=== PATIENT | female | born 1955 | race Caucasian/White ===

== ENCOUNTER 2017-05-11 08:57 | Day surgery (SDC) | payer BC ==
[2017-05-10 15:24] VITALS: BMI 20.8
[2017-05-11] MEDS ORDERED: PROPOFOL 20 ML ONE (09:02)
[2017-05-11 10:07] VITALS: TEMP 98.2
[2017-05-11 10:53] VITALS: BP 141/71; PULSE 77
--- NOTE | 2017-05-12 12:45 | PATH ---
Surgical Pathology Report Patient Name: ZOE RANGEL [facility]. Rec. #: [id number] /Age/Gender: 1955 (Age: 61) / F Account: [id number] Location: [facility]-ENDOSCOPY Taken: 05/11/2017 Received: 05/11/2017 Reported: 05/12/2017 Physicians: Chapincito Barcenas M.D. Specimen(s) Received BX ILEOCECAL VALVE Clinical History Preoperative diagnosis: Weight loss, CEA level elevation Postoperative diagnosis: Prominent ileocecal valve Final Diagnosis COLON, ILEOCECAL VALVE, BIOPSY: COLONIC AND SMALL INTESTINAL MUCOSA WITH NO PATHOLOGIC CHANGES. Electronically Signed Ziggy Avila M.D. Gross Description Received in formalin, labeled "biopsy ileocecal valve" are 2 serra, irregular portions of soft tissue averaging 0.2 cm. in greatest dimension. The specimens are submitted in toto in one cassette. /05/11/201705/11/2017
== END 2017-05-11 10:54 | disposition home or self-care (01) ==
LOC: EDBD → JASU-ENDO 08:57
PROVIDERS: ATTEND Internal Medicine Gastroenterology
PROC: 0DBC8ZX Excision of Ileocecal Valve, Via Natural or Artificial Opening Endoscopic, Diagnostic (ICD-10-PCS; principal; 2017-05-11 09:00)
DX: R63.4 Abnormal weight loss (principal)
CPT/HCPCS: 82962; 88305-TC

== ENCOUNTER 2024-05-17 14:48 | Inpatient (IN) | payer BC ==
[2024-05-17] MEDS ORDERED: FUROSEMIDE 40 MG/4 ML INJECTABLE VIAL ONE ×2 (15:59→22:26)
[2024-05-17] MEDS: FUROSEMIDE 40 MG/4 ML INJECTABLE VIAL IVPUSH ONE ×2 (16:11→22:46)
[2024-05-17 16:15] LABS: BASO % 0.6 % (0-2.0); HEMATOCRIT 34.6 % (32.4-45.2); HEMOGLOBIN 11.5 GM/dL (10.7-15.3); LYMPH % 16.7 % (8-40); MCH 28.9 pg (25.7-33.7); MCHC 33.2 g/dl (32.0-36.0); MEAN CELL VOLUME 86.9 fl (80-96); MEAN PLT VOLUME 9.2 fl (7.5-11.1); MONO % 7.3 % (3.8-10.2); NEUT % 73.4 % (42.8-82.8); PLATELET COUNT 316 10^3/uL (134-434); RBC 3.98 M/mm3 (3.60-5.2); RDW 15.6 % (11.6-15.6)
[2024-05-17 16:20] LABS: INR 0.95 (0.83-1.09); PROTHROMBIN TIME (PATIENT) 10.4 SEC (9.7-13.0)
[2024-05-17 16:23] LABS: ACTIVATED PTT 27.2 SECONDS (25.2-36.5)
[2024-05-17 16:29] LABS: CHLORIDE 90 mmol/L (98-107); SODIUM 131 mmol/L (136-145)
[2024-05-17 16:31] LABS: ANION GAP 7 mmol/L (4-13); BLOOD UREA NITROGEN 24.7 mg/dL (7-18); CO2 34 mmol/L (21-32)
[2024-05-17 16:32] LABS: ALBUMIN 2.2 g/dl (3.4-5.0); CALCIUM 8.8 mg/dL (8.5-10.1)
[2024-05-17 16:35] LABS: CREATININE 1.5 mg/dL (0.55-1.3); SGOT/AST 12 U/L (15-37); SGPT/ALT 15 U/L (13-61)
[2024-05-17 16:37] LABS: BILIRUBIN,TOTAL 1.1 mg/dL (0.2-1); TOT PROT 5.6 g/dl (6.4-8.2)
[2024-05-17 16:38] LABS: ALK PHOS 95 U/L (45-117)
[2024-05-17 16:50] LABS: GLUCOSE,RANDOM 686 mg/dL (74-106)
[2024-05-17 17:28] LABS: EPI CELLS 2 /uL (0-25.1); HYALINE CASTS 0 /uL (0-3.1); PH,URINE 6.5 (5.0-8.0); URINE APPEARANCE TURBID; URINE BACTERIA >9,000 /uL (0-1359); URINE BILIRUBIN NEGATIVE (NEGATIVE); URINE COLOR YELLOW; URINE GLUCOSE (UA) 3+ (NEGATIVE); URINE KETONE NEGATIVE (NEGATIVE); URINE LEUK ESTERASE 2+ (NEGATIVE); URINE NITRITE NEGATIVE (NEGATIVE); URINE PROTEIN 3+ (NEGATIVE); URINE RBC 131 /uL (0-23.9); URINE UROBILINOGEN 0.2 mg/dL (0.2-1.0); URINE WBC 6858 /uL (0-25.8)
[2024-05-17] MEDS: LOSARTAN 50MG/HCTZ 12.5MG 1 TAB PO ONE (17:30)
[2024-05-17] MEDS ORDERED: POTASSIUM CHLORIDE TABS 10 MEQ TABLET.ER (FP) ONE (18:49)
[2024-05-17] MEDS ORDERED: POTASSIUM CHLORIDE ORAL LIQUID 20 MEQ/15 ML ONE (18:49)
[2024-05-17] MEDS ORDERED: CEFTRIAXONE 1 G/50 ML PREMIX 50 ML IVPB ONE (18:50)
[2024-05-17] MEDS ORDERED: KCL 10 MEQ IVPB 10 MEQ/100 ML INFUS.BAG IVPB ONE (18:50)
[2024-05-17] MEDS: POTASSIUM CHLORIDE ORAL LIQUID 20 MEQ/15 ML PO ONE (19:07)
[2024-05-17] MEDS: POTASSIUM CHLORIDE TABS 10 MEQ TABLET.ER (FP) PO ONE (19:07)
[2024-05-17] MEDS: KCL 10 MEQ IVPB 10 MEQ/100 ML INFUS.BAG IVPB SCH (19:44)
[2024-05-17] MEDS ORDERED: ACETAMINOPHEN 500 MG TABLET (FP) PO PRN (20:13)
[2024-05-17] MEDS ORDERED: DOCUSATE SODIUM 100 MG CAPSULE (FP) PO PRN (20:13)
[2024-05-17 20:48] LABS: N-TERMINAL BNP 53425.83 pg/ml (5-125)
[2024-05-17 20:58] LABS: MAGNESIUM 2.3 mg/dL (1.8-2.4)
[2024-05-17] MEDS ORDERED: NITROGLYCERIN 2% OINTMENT - 1GM PACKET TD ONE (21:02)
[2024-05-17] MEDS ORDERED: INSULIN ASPART SLIDING SCALE (NOVOLOG) 1 VIAL SQ ONE (21:14)
[2024-05-17] MEDS: INSULIN ASPART SLIDING SCALE (NOVOLOG) 1 VIAL SQ SCH (21:23)
[2024-05-17] MEDS: NITROGLYCERIN 2% OINTMENT - 1GM PACKET TD ONE (21:24)
[2024-05-18] MEDS ORDERED: INSULIN ASPART SLIDING SCALE (NOVOLOG) 1 VIAL SQ ONE (00:46)
[2024-05-18 02:30] VITALS: BMI 22.8
[2024-05-18 07:45] LABS: BASO % 0.7 % (0-2.0); EOS % 5.4 % (0-4.5); HEMATOCRIT 32.9 % (32.4-45.2); HEMOGLOBIN 11.2 GM/dL (10.7-15.3); LYMPH % 23.4 % (8-40); MCH 29.6 pg (25.7-33.7); MCHC 34.1 g/dl (32.0-36.0); MEAN CELL VOLUME 86.8 fl (80-96); MEAN PLT VOLUME 9.2 fl (7.5-11.1); MONO % 8.2 % (3.8-10.2); NEUT % 62.3 % (42.8-82.8); PLATELET COUNT 317 10^3/uL (134-434); RBC 3.79 M/mm3 (3.60-5.2); RDW 15.2 % (11.6-15.6); WHITE BLOOD COUNT 7.9 K/mm3 (4.0-10.0)
[2024-05-18] MEDS: FUROSEMIDE 40 MG/4 ML INJECTABLE VIAL IVPUSH ONE (07:55)
[2024-05-18 08:05] LABS: CHLORIDE 95 mmol/L (98-107); SODIUM 137 mmol/L (136-145)
[2024-05-18 08:06] LABS: POTASSIUM 2.9 mmol/L (3.5-5.1)
[2024-05-18 08:07] LABS: CALCIUM 8.7 mg/dL (8.5-10.1)
[2024-05-18 08:08] LABS: ANION GAP 7 mmol/L (4-13); BLOOD UREA NITROGEN 24.2 mg/dL (7-18); CO2 35 mmol/L (21-32); GLUCOSE,RANDOM 112 mg/dL (74-106)
[2024-05-18 08:11] LABS: CREATININE 1.3 mg/dL (0.55-1.3)
[2024-05-18] MEDS: KCL 10 MEQ IVPB 10 MEQ/100 ML INFUS.BAG IVPB SCH (09:17)
[2024-05-18] MEDS: POTASSIUM CHLORIDE ORAL LIQUID 20 MEQ/15 ML PO SCH (09:17)
[2024-05-18] MEDS: CEFTRIAXONE 1 G/50 ML PREMIX 50 ML IVPB SCH (09:17)
[2024-05-18] MEDS: ASPIRIN COATED 81 MG TABLET.EC PO SCH (09:17)
[2024-05-18] MEDS: FUROSEMIDE 40 MG/4 ML INJECTABLE VIAL IVPUSH SCH (13:57)
[2024-05-18] MEDS: HEPARIN NA (PORCINE) 5,000 UNITS/ML 1ML VIAL SQ SCH (13:57)
[2024-05-18] MEDS: ROSUVASTATIN CA 5 MG TABLET PO SCH (21:12)
[2024-05-18] MEDS: INSULIN (LEVEMIR) 100 UNITS/ML UNITS SQ SCH (22:51)
[2024-05-19 08:14] LABS: CHLORIDE 99 mmol/L (98-107); POTASSIUM 3.2 mmol/L (3.5-5.1); SODIUM 139 mmol/L (136-145)
[2024-05-19 08:19] LABS: SGOT/AST 17 U/L (15-37)
[2024-05-19 08:20] LABS: ANION GAP 5 mmol/L (4-13); BLOOD UREA NITROGEN 24.4 mg/dL (7-18); CO2 35 mmol/L (21-32); GLUCOSE,RANDOM 76 mg/dL (74-106); MAGNESIUM 1.9 mg/dL (1.8-2.4)
[2024-05-19 08:23] LABS: CREATININE 1.4 mg/dL (0.55-1.3); PHOSPHOROUS 3.9 mg/dL (2.5-4.9)
[2024-05-19 08:24] LABS: BILIRUBIN,TOTAL 0.5 mg/dL (0.2-1)
[2024-05-19 08:25] LABS: TOT PROT 5.1 g/dl (6.4-8.2)
[2024-05-19 08:26] LABS: ALK PHOS 77 U/L (45-117)
[2024-05-19 08:27] LABS: SGPT/ALT 13 U/L (13-61)
[2024-05-19] MEDS: LOSARTAN POTASSIUM 50 MG TABLET PO SCH (09:15)
[2024-05-19] MEDS: INSULIN (LEVEMIR) 100 UNITS/ML UNITS SQ SCH (09:16)
[2024-05-20 07:36] LABS: CALCIUM 8.5 mg/dL (8.5-10.1)
[2024-05-20 07:37] LABS: ALBUMIN 1.9 g/dl (3.4-5.0); BLOOD UREA NITROGEN 25.7 mg/dL (7-18); MAGNESIUM 1.9 mg/dL (1.8-2.4)
[2024-05-20 07:40] LABS: CREATININE 1.3 mg/dL (0.55-1.3)
[2024-05-20 07:42] LABS: BILIRUBIN,TOTAL 0.5 mg/dL (0.2-1)
[2024-05-20] MEDS: metoPROLOL SUCCINATE 25 MG TAB.SR.24H (FP) PO SCH (12:22)
[2024-05-20] MEDS: SPIRONOLACTONE 25 MG TABLET PO SCH (12:22)
[2024-05-21 07:42] LABS: POTASSIUM 3.9 mmol/L (3.5-5.1)
[2024-05-21 07:53] LABS: ALBUMIN 1.9 g/dl (3.4-5.0); BLOOD UREA NITROGEN 30.2 mg/dL (7-18); CALCIUM 8.2 mg/dL (8.5-10.1)
[2024-05-21 07:56] LABS: CREATININE 1.2 mg/dL (0.55-1.3)
[2024-05-21 07:58] LABS: BILIRUBIN,TOTAL 0.8 mg/dL (0.2-1); TOT PROT 4.9 g/dl (6.4-8.2)
[2024-05-22 08:05] LABS: BASO % 0.9 % (0-2.0); EOS % 3.1 % (0-4.5); HEMATOCRIT 30.5 % (32.4-45.2); LYMPH % 16.1 % (8-40); MCH 29.3 pg (25.7-33.7); MCHC 32.9 g/dl (32.0-36.0); MEAN CELL VOLUME 89.2 fl (80-96); MEAN PLT VOLUME 9.3 fl (7.5-11.1); MONO % 6.7 % (3.8-10.2); NEUT % 73.2 % (42.8-82.8); PLATELET COUNT 273 10^3/uL (134-434); RBC 3.42 M/mm3 (3.60-5.2); RDW 16.2 % (11.6-15.6); WHITE BLOOD COUNT 9.1 K/mm3 (4.0-10.0)
[2024-05-22 08:12] LABS: POTASSIUM 4.1 mmol/L (3.5-5.1)
[2024-05-22 08:15] LABS: BLOOD UREA NITROGEN 35.2 mg/dL (7-18)
[2024-05-22 08:19] LABS: BILIRUBIN,TOTAL 0.6 mg/dL (0.2-1)
[2024-05-22 08:22] LABS: CREATININE 1.5 mg/dL (0.55-1.3); TOT PROT 5.2 g/dl (6.4-8.2)
[2024-05-22] MEDS: FUROSEMIDE 40 MG TABLET (FP) PO SCH (09:43)
[2024-05-22] MEDS: SPIRONOLACTONE 25 MG TABLET PO SCH (09:43)
[2024-05-22] MEDS: amLODIPine BESYLATE 5 MG TABLET (FP) PO SCH (09:43)
[2024-05-22] MEDS: COLCHICINE 0.6 MG TAB PO SCH (10:23)
[2024-05-22 19:41] LABS: SYPHILIS W/ RPR CONF NON-REACTIVE (NONREACTIVE)
[2024-05-22 20:09] LABS: HIV INTERPRETATION NEGATIVE (NEGATIVE)
[2024-05-22] MEDS: INSULIN (LEVEMIR) 100 UNITS/ML UNITS SQ SCH (22:38)
[2024-05-23 07:33] LABS: BASO % 0.7 % (0-2.0); EOS % 0.8 % (0-4.5); HEMATOCRIT 29.9 % (32.4-45.2); HEMOGLOBIN 9.6 GM/dL (10.7-15.3); LYMPH % 11.2 % (8-40); MCH 28.8 pg (25.7-33.7); MCHC 32.2 g/dl (32.0-36.0); MEAN CELL VOLUME 89.4 fl (80-96); MEAN PLT VOLUME 9.4 fl (7.5-11.1); MONO % 3.7 % (3.8-10.2); NEUT % 83.6 % (42.8-82.8); PLATELET COUNT 277 10^3/uL (134-434); RBC 3.34 M/mm3 (3.60-5.2)
[2024-05-23 07:52] LABS: POTASSIUM 4.1 mmol/L (3.5-5.1)
[2024-05-23 08:04] LABS: BLOOD UREA NITROGEN 39.7 mg/dL (7-18)
[2024-05-23 08:05] LABS: ALBUMIN 2.2 g/dl (3.4-5.0)
[2024-05-23 08:08] LABS: CREATININE 1.6 mg/dL (0.55-1.3)
[2024-05-23 08:09] LABS: BILIRUBIN,TOTAL 0.7 mg/dL (0.2-1); TOT PROT 5.6 g/dl (6.4-8.2)
[2024-05-23 09:03] LABS: N-TERMINAL BNP 28015.9 pg/ml (5-125)
[2024-05-23] MEDS: FUROSEMIDE 100 MG/10 ML INJECTABLE VIAL IVPB SCH (12:35)
[2024-05-23 17:08] LABS: IG A QN SERUM. 205 mg/dL (87-352)
[2024-05-23] MEDS ORDERED: INSULIN GLARGINE (LANTUS) 100 UNITS/ML UNITS SQ SCH (22:06)
[2024-05-23] MEDS: INSULIN (LEVEMIR) 100 UNITS/ML UNITS SQ SCH (22:38)
[2024-05-23] MEDS: INSULIN GLARGINE (LANTUS) 100 UNITS/ML UNITS SQ SCH (22:42)
[2024-05-24 07:26] LABS: EOS % 2.3 % (0-4.5); HEMATOCRIT 28.4 % (32.4-45.2); HEMOGLOBIN 9.3 GM/dL (10.7-15.3); LYMPH % 15.6 % (8-40); MCH 29.4 pg (25.7-33.7); MCHC 32.9 g/dl (32.0-36.0); MEAN CELL VOLUME 89.3 fl (80-96); MEAN PLT VOLUME 9.1 fl (7.5-11.1); MONO % 6.4 % (3.8-10.2); NEUT % 74.7 % (42.8-82.8); PLATELET COUNT 263 10^3/uL (134-434); RBC 3.18 M/mm3 (3.60-5.2); RDW 15.4 % (11.6-15.6); WHITE BLOOD COUNT 8.3 K/mm3 (4.0-10.0)
[2024-05-24 07:49] LABS: ALBUMIN 2.2 g/dl (3.4-5.0); BLOOD UREA NITROGEN 40.1 mg/dL (7-18); CALCIUM 7.8 mg/dL (8.5-10.1); MAGNESIUM 2.4 mg/dL (1.8-2.4)
[2024-05-24 07:52] LABS: CREATININE 1.6 mg/dL (0.55-1.3)
[2024-05-24 07:54] LABS: BILIRUBIN,TOTAL 0.7 mg/dL (0.2-1); TOT PROT 5.6 g/dl (6.4-8.2)
[2024-05-24] MEDS: CEFUROXIME AXETIL 250 MG TABLET PO SCH (09:34)
[2024-05-24 12:39] LABS: EPI CELLS 5 /uL (0-25.1); HYALINE CASTS 2 /uL (0-3.1); URINE APPEARANCE CLEAR; URINE BACTERIA 129 /uL (0-1359); URINE BILIRUBIN NEGATIVE (NEGATIVE); URINE COLOR YELLOW; URINE GLUCOSE (UA) 2+ (NEGATIVE); URINE KETONE NEGATIVE (NEGATIVE); URINE LEUK ESTERASE NEGATIVE (NEGATIVE); URINE NITRITE NEGATIVE (NEGATIVE); URINE PROTEIN 4+ (NEGATIVE); URINE UROBILINOGEN 0.2 mg/dL (0.2-1.0)
[2024-05-24 13:25] LABS: URINE RBC 140 /uL (0-23.9); URINE WBC 212 /uL (0-25.8)
[2024-05-24] MEDS: INSULIN ASPART SLIDING SCALE (NOVOLOG) 1 VIAL SQ SCH (17:51)
[2024-05-24] MEDS: guaiFENesin 200 MG/10 ML 10 ML UNIT-DOSE CUPS PO PRN (21:36)
[2024-05-25 07:14] LABS: BASO % 1.1 % (0-2.0); EOS % 3.8 % (0-4.5); HEMATOCRIT 27.2 % (32.4-45.2); LYMPH % 29.1 % (8-40); MCH 29.5 pg (25.7-33.7); MCHC 33.2 g/dl (32.0-36.0); MEAN CELL VOLUME 88.8 fl (80-96); MEAN PLT VOLUME 9.6 fl (7.5-11.1); MONO % 7.8 % (3.8-10.2); NEUT % 58.2 % (42.8-82.8); PLATELET COUNT 264 10^3/uL (134-434); RBC 3.07 M/mm3 (3.60-5.2); RDW 15.7 % (11.6-15.6); WHITE BLOOD COUNT 7.6 K/mm3 (4.0-10.0)
[2024-05-25 07:20] LABS: POTASSIUM 4.1 mmol/L (3.5-5.1)
[2024-05-25 07:23] LABS: BLOOD UREA NITROGEN 45.2 mg/dL (7-18); CALCIUM 7.8 mg/dL (8.5-10.1)
[2024-05-25 07:26] LABS: CREATININE 1.6 mg/dL (0.55-1.3)
[2024-05-25 07:27] LABS: BILIRUBIN,TOTAL 0.7 mg/dL (0.2-1); TOT PROT 5.3 g/dl (6.4-8.2)
[2024-05-25 13:08] LABS: RENIN ACTIVITY(PRA) 0.217 ng/mL/hr (0.167-5.380)
[2024-05-25 14:56] VITALS: TEMP 98.2
[2024-05-25 16:25] VITALS: BP 144/70; PULSE 78; RESP 20
== END 2024-05-25 16:15 | disposition home or self-care (01) | DRG 291 ==
LOC: JER 14:48 → OBSVTOIN 17:53 → JERBED 17:53 → UNDOADMOB 17:53 → INTOOBSV 17:53 → JERBED 20:03 → J4W 05-18 01:13 → JERBED 05-18 01:13 → OBSVTOIN 05-19 09:12
PROVIDERS: ADMIT Internal Medicine; ATTEND Family Medicine
DX: I13.0 Hypertensive heart and chronic kidney disease with heart failure and stage 1 through stage 4 chronic kidney disease, or unspecified chronic kidney disease (principal); I50.23 Acute on chronic systolic (congestive) heart failure; N39.0 Urinary tract infection, site not specified; N17.9 Acute kidney failure, unspecified; E87.1 Hypo-osmolality and hyponatremia; I24.89 Other forms of acute ischemic heart disease; I31.39 Other pericardial effusion (noninflammatory); E78.5 Hyperlipidemia, unspecified; I16.0 Hypertensive urgency; E87.6 Hypokalemia; K52.9 Noninfective gastroenteritis and colitis, unspecified; R33.9 Retention of urine, unspecified; N18.9 Chronic kidney disease, unspecified; E11.22 Type 2 diabetes mellitus with diabetic chronic kidney disease
CPT/HCPCS: 36415; 71045-TC-FY; 71046-TC-FY; 71250-TC; 74177-TC; 80048; 80053; 81003; 82088; 82784; 82962; 83036; 83735; 83880; 84100; 84155; 84165; 84244; 84439; 84443; 84484; 85025; 85610; 85651; 85730; 86038; 86140; 86160; 86200; 86431; 86480; 86780; 87086; 87186; 87389; 87633; 93005; 93010; 93306-TC; 94761; 99285-25; G0378; J1644

== ENCOUNTER 2024-09-11 13:49 | Observation (INO) | payer BC, OTHER ==
[2024-09-11 14:05] VITALS: BMI 21.2
[2024-09-11 14:45] LABS: ABSOLUTE IMMATURE GRANULOCYTES 0.02 x10^3/uL (0.0-0.031); BASOPHILS # 0.07 x10^3/uL (0.01-0.08); EOSINOPHIL % 2.4 % (0.7-5.8); EOSINOPHILS # 0.20 x10^3/uL (0.04-0.36); MCHC 30.4 g/dl (32.2-35.5); MEAN CELL VOLUME 89.7 fl (79.4-94.8); MEAN PLT VOLUME 10.5 fl (9.4-12.3); MONOCYTE # 0.55 x10^3/uL (0.24-0.86); MONOCYTE % 6.5 % (4.7-12.5); RDW 16.6 % (12.4-16.4)
[2024-09-11 14:53] LABS: INR 0.97 (0.83-1.09); PROTHROMBIN TIME (PATIENT) 10.6 SEC (9.7-13.0)
[2024-09-11 14:56] LABS: ACTIVATED PTT 31.4 SECONDS (25.2-36.5)
[2024-09-11 15:14] LABS: CREATININE 2.0 mg/dL (0.55-1.3); SGOT/AST 18 U/L (15-37); SGPT/ALT 28 U/L (13-61)
[2024-09-11 15:16] LABS: TOT PROT 6.3 g/dl (6.4-8.2)
[2024-09-11 15:20] LABS: ALK PHOS 98 U/L (45-117); CO2 19 mmol/L (21-32); GLUCOSE,RANDOM 184 mg/dL (74-106)
[2024-09-11] MEDS ORDERED: CALCIUM GLUC IN NACL, ISO-OSM 1 GM/50 ML BAG IVPB ONE (15:45)
[2024-09-11] MEDS ORDERED: SODIUM ZIRCONIUM CYCLOSILICATE (LOKELMA) 5 GM PACKET ONE (15:45)
[2024-09-11] MEDS ORDERED: INSULIN REGULAR HUMAN 100 UNITS/ML *VIAL ONE (15:46)
[2024-09-11] MEDS ORDERED: DEXTROSE 50%-WATER 25 GM/50 ML DISP.SYRIN ONE (15:46)
[2024-09-11] MEDS: DEXTROSE 50%-WATER - 25 GM/50 ML VIAL IVPUSH ONE (16:03)
[2024-09-11] MEDS: CALCIUM GLUC IN NACL, ISO-OSM 1 GM/50 ML BAG IVPB ONE (16:03)
[2024-09-11] MEDS: SODIUM ZIRCONIUM CYCLOSILICATE (LOKELMA) 5 GM PACKET PO ONE (16:04)
[2024-09-11] MEDS: INSULIN REGULAR HUMAN 100 UNITS/ML *VIAL IVPUSH ONE (16:04)
[2024-09-11] MEDS: LACTATED RINGERS SOLUTION 1000 ML INFUS.BAG IV ONE (17:24)
[2024-09-11] MEDS: INSULIN GLARGINE (LANTUS) 100 UNITS/ML UNITS SQ SCH (23:11)
[2024-09-11] MEDS: INSULIN ASPART SLIDING SCALE (NOVOLOG) 1 VIAL SQ SCH (23:12)
[2024-09-12 00:10] LABS: CO2 19.0 mmol/L (21-32); CREATININE 1.7 mg/dL (0.55-1.3); GLUCOSE,RANDOM 193.0 mg/dL (74-106)
[2024-09-12] MEDS: SODIUM ZIRCONIUM CYCLOSILICATE (LOKELMA) 5 GM PACKET PO SCH (00:45)
[2024-09-12] MEDS: SODIUM CHLORIDE 0.45% 1,000 ML IV SCH (00:46)
[2024-09-12 08:57] LABS: ABSOLUTE IMMATURE GRANULOCYTES 0.02 x10^3/uL (0.0-0.031); BASOPHILS # 0.07 x10^3/uL (0.01-0.08); EOSINOPHIL % 3.7 % (0.7-5.8); EOSINOPHILS # 0.26 x10^3/uL (0.04-0.36); MCHC 30.3 g/dl (32.2-35.5); MEAN CELL VOLUME 89.5 fl (79.4-94.8); MEAN PLT VOLUME 11.2 fl (9.4-12.3); MONOCYTE # 0.58 x10^3/uL (0.24-0.86); MONOCYTE % 8.3 % (4.7-12.5); RDW 16.5 % (12.4-16.4)
[2024-09-12 09:18] LABS: CO2 20.0 mmol/L (21-32); GLUCOSE,RANDOM 96.0 mg/dL (74-106)
[2024-09-12 09:22] LABS: CREATININE 1.5 mg/dL (0.55-1.3)
[2024-09-12] MEDS: amLODIPine BESYLATE 5 MG TABLET (FP) PO SCH (10:33)
[2024-09-12] MEDS: amLODIPine BESYLATE 5 MG TABLET (FP) PO ONE (14:30)
[2024-09-13 08:16] LABS: CO2 21.0 mmol/L (21-32); GLUCOSE,RANDOM 107.0 mg/dL (74-106)
[2024-09-13 08:20] LABS: CREATININE 1.5 mg/dL (0.55-1.3); SGOT/AST 11.0 U/L (15-37); SGPT/ALT 20.0 U/L (13-61)
[2024-09-13 08:21] LABS: TOT PROT 5.8 g/dl (6.4-8.2)
[2024-09-13 08:23] LABS: ALK PHOS 79.0 U/L (45-117)
[2024-09-13] MEDS: amLODIPine BESYLATE 5 MG TABLET (FP) PO SCH (09:49)
[2024-09-13 16:22] VITALS: RESP 17
[2024-09-13 18:47] VITALS: BP 159/70; PULSE 71; TEMP 98.2
== END 2024-09-13 20:20 | disposition left against medical advice (07) ==
LOC: JER 13:49 → JERBED 16:56 → J4S 21:29
PROVIDERS: ADMIT Internal Medicine; ATTEND Internal Medicine
PROC: 3E033GC Introduction of Other Therapeutic Substance into Peripheral Vein, Percutaneous Approach (ICD-10-PCS; principal; 2024-09-11)
PROC: 3E033GC Introduction of Other Therapeutic Substance into Peripheral Vein, Percutaneous Approach (ICD-10-PCS; 2024-09-11)
PROC: 3E013VG Introduction of Insulin into Subcutaneous Tissue, Percutaneous Approach (ICD-10-PCS; 2024-09-11)
PROC: 3E033VG Introduction of Insulin into Peripheral Vein, Percutaneous Approach (ICD-10-PCS; 2024-09-11)
PROC: 3E0337Z Introduction of Electrolytic and Water Balance Substance into Peripheral Vein, Percutaneous Approach (ICD-10-PCS; 2024-09-11)
DX: E87.5 Hyperkalemia (principal); N17.9 Acute kidney failure, unspecified; N18.9 Chronic kidney disease, unspecified; E11.22 Type 2 diabetes mellitus with diabetic chronic kidney disease; I50.20 Unspecified systolic (congestive) heart failure; I12.9 Hypertensive chronic kidney disease with stage 1 through stage 4 chronic kidney disease, or unspecified chronic kidney disease; Z90.49 Acquired absence of other specified parts of digestive tract; Z90.79 Acquired absence of other genital organ(s); E78.5 Hyperlipidemia, unspecified
CPT/HCPCS: 36415; 71045-TC-FY; 80048; 80053; 82962; 83036; 83735; 83880; 84100; 85025; 85610; 85730; 86850; 86900; 86901; 93005; 93010; 96361; 96365; 96372; 96375; 99285-25; G0378